=== PATIENT | female | born 1965 | race American Indian/Alaskan Native ===

== ENCOUNTER 2016-09-04 15:34 | Inpatient (IN) | payer BC, OTHER ==
[2016-09-04 15:59] VITALS: BMI 123.0
[2016-09-04] MEDS ORDERED: Sodium Chloride 0.9% 1,000 ML IV ONE ×2 (16:01→16:23)
[2016-09-04] MEDS ORDERED: Lactated Ringer's 1,000 ML IVB STA (16:50)
[2016-09-04] MEDS ORDERED: DOPamine 400mg/250ml D5W 250 ML IV STA (16:51)
[2016-09-04 17:14] LABS: VENOUS BLOOD GAS BASE EXCESS -17.5 mmol/L (0.0-2.0); VENOUS BLOOD GAS PCO2 76 mmHg (40-60); VENOUS BLOOD PH 6.93 (7.32-7.43)
[2016-09-04 17:20] LABS: BASO # 0.2 K/uL (0.0-0.2); EOS # 0.1 K/uL (0.0-0.7); EOS % 0.5 % (0.0-4.0); HEMATOCRIT 38.2 % (34.0-47.0); LYMPH # 5.2 K/uL (1.0-4.3); LYMPH % 29.1 % (20.0-40.0); MEAN CELL VOLUME 112.3 fL (81.0-99.0); MEAN CORPUSCULAR HEMOGLOBIN 33.1 pg (27.0-31.0); MEAN CORPUSCULAR HGB CONC 29.4 g/dL (33.0-37.0); MEAN PLATELET VOLUME 9.3 fL (7.2-11.7); MONO # 0.9 K/uL (0.0-0.8); MONO % 5.2 % (0.0-10.0); RED CELL DISTRIBUTION WIDTH 16.5 % (11.5-14.5)
[2016-09-04 17:31] LABS: CHLORIDE 104 mmol/L (98-107); POTASSIUM 3.5 mmol/L (3.6-5.2); SODIUM 142 mmol/L (132-148)
[2016-09-04 17:33] LABS: ALB/GLOB RATIO 0.9 (1.0-2.1); AST/SGOT 555 U/L (14-36); BILIRUBIN,TOTAL 0.9 mg/dL (0.2-1.3); CARBON DIOXIDE 16 mmol/L (22-30); GFR AFRICAN-AMERICAN > 60; TOTAL PROTEIN 4.6 g/dL (6.3-8.3)
[2016-09-04 17:34] LABS: ALKALINE PHOSPHATASE 47 U/L (38-126); ALT/SGPT 241 U/L (9-52); BLOOD UREA NITROGEN 13 mg/dL (7-17); CALCIUM 8.3 mg/dl (8.6-10.4); GLUCOSE,RANDOM 186 mg/dL (65-105); PHOSPHOROUS 5.8 mg/dL (2.5-4.5)
[2016-09-04] MEDS ORDERED: Albuterol-Ipratrop 3 mg / 0.5 (3 ml) UD INH STA (17:41)
[2016-09-04] MEDS ORDERED: Albumin Human 25% (12.5 gm/50 ml) IV STA (17:42)
[2016-09-04] MEDS ORDERED: Sodium Bicarbonate 8.4% 100 MEQ in Sodium Chloride 0.45% 900 ML IV SCH ×2 (17:45→23:07)
[2016-09-04] MEDS ORDERED: Albuterol-Ipratrop 3 mg / 0.5 (3 ml) UD ONE (17:49)
[2016-09-04] MEDS ORDERED: Sodium Bicarbonate (8.4%) 50 Meq Syringe IVP ONE ×2 (18:01→21:30)
--- NOTE | 2016-09-04 18:20 | C.PDOC ---
History Of Present Illness Pt was being transferred from [place] ED to the [facility] labor custodian for a procedure to treat massive pulmonary embolism. Pt was diverted to this ED because pt was found to be unstable. I saw this pt immediately upon arrival to this ED. Time Seen by Provider: 09/04/16 15:49 Chief Complaint (Nursing): Cardiac Arrest History Per: Patient, EMS, Family Circumstances: Brought To ED By EMS CPR Initiated Prior To MD Arrival?: No Treatment Initiated Prior To MD Arrival: Yes: IV Access - Initial Findings Mentation: Lethargic Rhythm: Tachycardia Past Medical History Reviewed: Historical Data, Nursing Documentation, Vital Signs Vital Signs: Last Vital Signs Temp Pulse 140 H 09/04/16 16:30 Resp 28 H 09/04/16 16:02 BP 110/58 L 09/04/16 16:02 Pulse Ox - Medical History PMH: Deep Vein Thrombosis, GERD, HTN Surgical History: Endoscopy (2007) - [facility] Procedures ESOPHAGOGASTRODUODENOSCOPY [EGD] W/CLOSED BIOPSY (10/16/13) Family History: States: Unknown Family Hx - Social History Hx Alcohol Use: Yes Hx Substance Use: No Review Of Systems Review Of Systems: ROS cannot be obtained secondary to pt's inabilty to answer questions. Physical Exam - Physical Exam Appears: Toxic, In Acute Distress Skin: Diaphoretic Head: Atraumatic Eye(s): bilateral: PERRL Neck: Normal ROM, Supple Chest: Symmetrical Cardiovascular: Rhythm Regular (tachycardic) Respiratory: Normal Breath Sounds (but tachypneic and very dyspneic) Gastrointestinal/Abdominal: Soft Extremity: Normal ROM Neurological/Psych: Oriented x3, Other (Lethargic, but able to move all extremities) ED Course And Treatment - Laboratory Results Result Diagrams: 09/04/16 17:16 09/04/16 17:16 ECG: Interpreted By Me, Viewed By Me ECG Rhythm: Sinus Tachycardia, Nonspecific Changes ECG Interpretation: Abnormal Rate From EC - Radiology CXR: Interpreted by Me, Viewed By Me CXR Interpretation: Yes: Other (ETT in place) Progress Note: Upon prompt evaluation of this patient, I recognized that she was suffering from a massive pulmonry embolism. I therefore ordered IV fluids and IV TPA right away. However, pt then coded while we were starting the medications. We then started CPR and ACLS protocol and I intubated the pt. I called Dr. Gentile (skidder loader), Dr. Jeffries (hospitalist), Dr. Tyler (IR), and Dr. Lafleur (ED director) to the bedside. Pt continued to become bradycardic and lose pulses on/off and the codes were managed by both me and Dr. Gentile. We decided to start pt on vasopressors (both Dopamine and Levophed) and continue IV fluid bloluses. We did not start a CVC because TPA was already infusing and there is a high risk of bleeding. Pt then started to improve and was admitted to ICU. Endotracheal Intubation - Endotracheal Intubation Intubated With ETT Size: 7 (7.5) Blade Type Used: Curved Indication: Respiratory Failure Intubated: Orally Pre-Intubation Airway Assessment: Ventilated And Oxygenated Post-Intubation Assessment: ETT Secured AT (cm): (23), Breath Sounds Equal Bilat , Placement Confirmed Via CXR, Color Change W/End Tidal CO2 Detector Progress - Interventions Interventions:: Observation, Intravenous fluid, Oxygen - Medications Administered Intravenous: Other (TPA, Epinephrine, Sodium Bicarb.) - Data Reviewed Data Reviewed: Lab, Diagnostic imaging, EKG, Old records - Patient Status Patient status: Partially improved, Critical - Critical Care Citical Care: Excluding Proc Time Critical Care Time: 75 minutes - Continuity of Care Discussed patient case with:: Family-HIPPA compliant, ED Nurse, On-call PMD-pt unassigned Discussed pt. case with mobile sales consultant/specialty: Pulmonary/Crit. Care - Patient Plan Patient Plan: Admission, ICU Disposition - Disposition Disposition: HOSPITALIZED Disposition Time: 18:00 Condition: CRITICAL - Clinical Impression Clinical Impression: Acute massive pulmonary embolism
[2016-09-04] MEDS ORDERED: DOPamine 400mg/250ml D5W 250 ML IV ONE (18:38)
[2016-09-04] MEDS ORDERED: Propofol 10 mg/ml Inj (20 ML) ONE (19:28)
[2016-09-04] MEDS ORDERED: Propofol 10 mg/ml Inj (20 ML) IV ONE (19:30)
--- NOTE | 2016-09-04 19:46 | CP.PCM.CON ---
History of Present Illness - History of Present Illness History of Present Illness: Chief complaint: Cardiac arrest History present illness: 50-year-old female history of hypertension GERD deep venous thrombosis and also now diagnosed with the acute saddle embolism, was brought into the [facility] today from [facility] for emergency thrombolysis by the catheter. But upon arrival to the hospital patient become very unstable, and the patient was transferred to the emergency room immediately, and the emergency room patient developed a cardiac arrest, and patient was resuscitated by emergency room doctor and myself, the whole procedure was monitored, and recorded. During the code, patient received intravenous thrombolysis, and 100 mg of alteplase was given over the course of 60 minutes. Patient had at least 4 episodes of cardiac arrest, each time patient was given cardiac massage, epinephrine, IV fluids and continued to get a resuscitation. After an hour later patient started having sustained cardiac rhythm, and patient was placed on dopamine 30 mics, norepinephrine 20 mics and also IV fluids. Patient was on ventilator, continued receiving oxygen. VBG was done showing evidence of pH of 6.9, started on bicarbonate drip albumen was also given to increase the blood pressure. Now patient is transferred to the intensive care unit, patient is awake and responding, she is fighting against the tube, currently given sedation Ativan 2 mg IV. Because of the TPA was given no arterial punctures were done now so we don't have a ABG at this time. The saturation is 100% on 100% FiO2 medical history DVT GERD hypertension Surgical history none Allergies none known drug allergy Review of system: Currently patient is on ventilator, patient is following commands, obesity, possible sleep apnea cannot be ruled out On examination: Vital signs unstable currently. Heart rate is 136 sinus rhythm saturation 100%. 19/m Chest good air entry bilaterally on ventilator. Heart sound abdomen soft nontender extremities edema bilaterally noted Patient's labs reviewed Chest x-ray showing evidence of severe oligemia on the right lung some improvement in the circulation on the left lung Assessment/condition: 50-year-old female admitted with acute cardiac arrest, complicated with secondary to saddle pulmonary embolism, status post a resuscitation, status post a TPA will start the patient on heparin, continue the hemodynamic support and follow-up by the ICU team Past Patient History - Past Medical History & Family History Past Medical History?: Yes - Past Social History Smoking Status: Current Some Days Smoker - CARDIAC Hx Hypertension: Yes - PULMONARY Hx Respiratory Disorders: No - NEUROLOGICAL Hx Dementia: No - HEENT Hx HEENT Problems: No - RENAL Hx Chronic Kidney Disease: No - ENDOCRINE/METABOLIC Hx Endocrine Disorders: No - HEMATOLOGICAL/ONCOLOGICAL Hx Blood Disorders: Yes Other/Comment: hx DVT in right leg 2011, pt was on coumadin but stopped due to bruising - INTEGUMENTARY Hx Dermatological Problems: No - MUSCULOSKELETAL/RHEUMATOLOGICAL Hx Musculoskeletal Disorders: No - GASTROINTESTINAL Hx Gastrointestinal Disorders: No - GENITOURINARY/GYNECOLOGICAL Hx Genitourinary Disorders: No - PSYCHIATRIC Hx Substance Use: No - SURGICAL HISTORY Hx Gastric Bypass Surgery: Yes (2005) - ANESTHESIA Hx Anesthesia: Yes Hx Anesthesia Reactions: No Hx Malignant Hyperthermia: No Meds Allergies/Adverse Reactions: Allergies Allergy/AdvReac Type Severity Reaction Status Date / Time No Known Allergies Allergy Verified 09/04/16 09:51 - Medications Medications: Current Medications Sodium Bicarbonate 100 meq/ (Sodium Chloride) 1,000 mls @ 100 mls/hr IV .Q10H KAREN Propofol (Diprivan) 100 mls @ 4.423 mls/hr IV .[id number] PRN; Protocol; 5 MCG/KG/ MIN PRN Reason: TITRATE PER MD ORDER Results - Vital Signs Recent Vital Signs: Last Vital Signs Temp Pulse 140 H 09/04/16 16:30 Resp 28 H 09/04/16 16:02 BP 110/58 L 09/04/16 16:02 Pulse Ox - Labs Result Diagrams: 09/04/16 17:16 09/04/16 17:16 Labs: Laboratory Results - last 24 hr 09/04/16 09/04/16 09/04/16 16:26 16:50 17:16 WBC 18.0 H D RBC 3.40 L Hgb 11.2 D Hct 38.2 MCV 112.3 H D MCH 33.1 H MCHC 29.4 L RDW 16.5 H Plt Count 115 L D MPV 9.3 Neut % (Auto) 64.2 Lymph % (Auto) 29.1 [place] % (Auto) 5.2 Eos % (Auto) 0.5 Baso % (Auto) 1.0 Neut # 11.6 H Lymph # 5.2 H [place] # 0.9 H Eos # 0.1 Baso # 0.2 pO2 42 VBG pH 6.93 L* VBG pCO2 76 H* VBG HCO3 9.8 VBG Total CO2 18.3 L VBG O2 Sat (Calc) 51.1 VBG Base Excess -17.5 L VBG Potassium 3.2 L Sodium 147.0 142 Chloride 111.0 H 104 Glucose 185 H Lactate 12.7 H* Crit Value Called To Dr javier Crit Value Called By [facility] Crit Value Read Back Y Blood Gas Notified Time 1714 Potassium 3.5 L Carbon Dioxide 16 L Anion Gap 26 H BUN 13 Creatinine 1.1 Est GFR ( Amer) > 60 Est GFR (Non-Af Amer) 52 POC Glucose (mg/dL) 166 H Random Glucose 186 H Calcium 8.3 L Phosphorus 5.8 H Magnesium 2.0 Total Bilirubin 0.9 AST 555 H D ALT 241 H D Alkaline Phosphatase 47 Total Creatine Kinase 123 CK-MB (Mass) 1.45 Troponin I, Quant 0.1090 NT-Pro-B Natriuret Pep 19600 H Total Protein 4.6 L Albumin 2.2 L D Globulin 2.4 Albumin/Globulin Ratio 0.9 L Venous Blood Potassium 3.2 L
[2016-09-04] MEDS ORDERED: Heparin25000 units/250ml 1/2NS 250 ML IV PRN (19:49)
[2016-09-04] MEDS ORDERED: DOPamine 400mg/250ml D5W 250 ML IV PRN (19:56)
[2016-09-04] MEDS ORDERED: Phenylephrine 30 MG in Sodium Chloride 0.9% 250 ML IV PRN (20:25)
--- NOTE | 2016-09-04 20:29 | CP.PCM.HP ---
<NayeliyonisAnnette rogellemuel - Last Filed: 09/04/16 21:18> History of Present Illness - History of Present Illness History of Present Illness: CC: syncope HPI: 50-year-old female with PMHx significant for hypertension, GERD, deep venous thrombosis and current diagnosis of acute saddle embolism, was transferred to [facility] today from [facility] for emergency catheter directed thrombolysis. En route to the hospital, patient became very unstable. Patient was transferred to the emergency room immediately, wherepon patient went into cardiac arrest in the ED. Patient was resuscitated by emergency room doctor and banquet set up person. During the code, patient received intravenous thrombolysis, and then 100 mg of alteplase administered over the course of 60 minutes. Patient had at least 4 episodes of cardiac arrest, each time patient was given cardiac massage, epinephrine, IV fluids which resuscitated the patient. Approx an hour later, patient was able to sustain a cardiac rhythm, and patient was placed on dopamine 30 mcgs, norepinephrine 20 mcgs and also IV fluids. Patient intubated and on a ventilator receiving continuous oxygen. VBG performed showing evidence of pH of 6.9. Pt started on bicarbonate drip. Albuminn was also given to increase the blood pressure. Patient transferred to the intensive care unit for critical care monitoring Past medical history: as noted above DVT GERD hypertension Surgical history: s/p prior endoscopy Fam Hx: Unknown- Patient intubated and sedated Social Hx: Unknown- Patient intubated and sedated Allergies : NKDA Present on Admission - Present on Admission Any Indicators Present on Admission: Yes History of DVT/PE: Yes Review of Systems - Review of Systems Systems not reviewed;Unavailable: Intubated Past Patient History - Past Medical History & Family History Past Medical History?: Yes - Past Social History Smoking Status: Current Some Days Smoker - CARDIAC Hx Hypertension: Yes - PULMONARY Hx Respiratory Disorders: No - NEUROLOGICAL Hx Dementia: No - HEENT Hx HEENT Problems: No - RENAL Hx Chronic Kidney Disease: No - ENDOCRINE/METABOLIC Hx Endocrine Disorders: No - HEMATOLOGICAL/ONCOLOGICAL Hx Blood Disorders: Yes Other/Comment: hx DVT in right leg 2011, pt was on coumadin but stopped due to bruising - INTEGUMENTARY Hx Dermatological Problems: No - MUSCULOSKELETAL/RHEUMATOLOGICAL Hx Musculoskeletal Disorders: No - GASTROINTESTINAL Hx Gastrointestinal Disorders: No - GENITOURINARY/GYNECOLOGICAL Hx Genitourinary Disorders: No - PSYCHIATRIC Hx Substance Use: No - SURGICAL HISTORY Hx Gastric Bypass Surgery: Yes (2005) - ANESTHESIA Hx Anesthesia: Yes Hx Anesthesia Reactions: No Hx Malignant Hyperthermia: No Meds Allergies/Adverse Reactions: Allergies Allergy/AdvReac Type Severity Reaction Status Date / Time No Known Allergies Allergy Verified 09/04/16 09:51 Physical Exam - Constitutional Appears: Non-toxic, In Acute Distress Additional comments: large body habitus - Head Exam Head Exam: ATRAUMATIC, NORMAL INSPECTION, NORMOCEPHALIC - Eye Exam Eye Exam: EOMI, Normal appearance, PERRL Pupil Exam: NORMAL ACCOMODATION - ENT Exam ENT Exam: Mucous Membranes Moist - Neck Exam Neck exam: Positive for: Full Rom - Respiratory Exam Respiratory Exam: NORMAL BREATHING PATTERN. absent: Wheezes - Cardiovascular Exam Cardiovascular Exam: +S1, +S2 Additional comments: difficult to auscultate likely due to adipose tissue - GI/Abdominal Exam GI & Abdominal Exam: Normal Bowel Sounds, Soft. absent: Tenderness - Extremities Exam Extremities exam: Positive for: full ROM - Neurological Exam Neurological exam: Altered - Psychiatric Exam Psychiatric exam: Flat Affect - Skin Skin Exam: Dry, Intact, Normal Color, Warm Results - Vital Signs Recent Vital Signs: Last Vital Signs Temp 97.2 F L 09/04/16 16:02 Pulse 148 H 09/04/16 18:30 Resp 30 H 09/04/16 18:30 BP 118/84 09/04/16 18:30 Pulse Ox 90 L 09/04/16 18:30 - Labs Result Diagrams: 09/04/16 20:28 09/04/16 20:28 Labs: Laboratory Results - last 24 hr 09/04/16 09/04/16 09/04/16 16:26 16:50 17:16 WBC 18.0 H D RBC 3.40 L Hgb 11.2 D Hct 38.2 MCV 112.3 H D MCH 33.1 H MCHC 29.4 L RDW 16.5 H Plt Count 115 L D MPV 9.3 Neut % (Auto) 64.2 Lymph % (Auto) 29.1 [place] % (Auto) 5.2 Eos % (Auto) 0.5 Baso % (Auto) 1.0 Neut # 11.6 H Lymph # 5.2 H [place] # 0.9 H Eos # 0.1 Baso # 0.2 pO2 42 VBG pH 6.93 L* VBG pCO2 76 H* VBG HCO3 9.8 VBG Total CO2 18.3 L VBG O2 Sat (Calc) 51.1 VBG Base Excess -17.5 L VBG Potassium 3.2 L Sodium 147.0 142 Chloride 111.0 H 104 Glucose 185 H Lactate 12.7 H* Crit Value Called To Dr javier Crit Value Called By [facility] Crit Value Read Back Y Blood Gas Notified Time 1714 Potassium 3.5 L Carbon Dioxide 16 L Anion Gap 26 H BUN 13 Creatinine 1.1 Est GFR ( Amer) > 60 Est GFR (Non-Af Amer) 52 POC Glucose (mg/dL) 166 H Random Glucose 186 H Calcium 8.3 L Phosphorus 5.8 H Magnesium 2.0 Total Bilirubin 0.9 AST 555 H D ALT 241 H D Alkaline Phosphatase 47 Total Creatine Kinase 123 CK-MB (Mass) 1.45 Troponin I, Quant 0.1090 NT-Pro-B Natriuret Pep 35784 H Total Protein 4.6 L Albumin 2.2 L D Globulin 2.4 Albumin/Globulin Ratio 0.9 L Venous Blood Potassium 3.2 L Assessment & Plan - Assessment and Plan (Free Text) Assessment: 50 year old with PMHx significant for HTN, GERD, prior DVT presents with bilateral PE requiring TPA therapy. Patient went into cardiac arrest multiple times and ACLS protocol immediately initiated each time. Patient resuscitated and transferred to ICU for critical care monitoring. Plan: Neuro: Ativan given due to patient's agitation Pt sedated on Propofol Cardio: Cardiac arrest multiple episodes ACLS protocol initiated immediately- Pt resuscitated Initially on dopamine, Norepi and IVF. Albumin given to increase BP ECHO- F/U to rule out right heart strain Morbidly Obese Pulm: CTA- bilateral acute saddle emboli noted. There may also be atelectasis and/or early acute infarct changes in the left upper and lower lobes as detailed above. See full report TPA Adjust vent settings as needed GI: NPO Nephro/: VBG pH 6.9 Bicarb drip started Monitor electrolytes and replete as needed Monitor Ins/Outs IVF ID: No apparent signs of current infectious disease Inc in WBC likely secondary to stress related response Will monitor Endo: F/U Hgb A1C No known hx of Diabetes Heme: PE TPA-> Heparin Hx of DVTs for which patient has been on coumadin before F/U co-ags Prophylaxis: TPA-> Heparin Protonix Confirm Home meds <Rangel Jeffries H - Last Filed: 09/05/16 07:53> Results - Vital Signs Recent Vital Signs: Last Vital Signs Temp 98 F 09/04/16 19:30 Pulse 56 L 09/04/16 23:29 Resp 19 09/04/16 23:29 BP 71/49 L 09/04/16 23:29 Pulse Ox 44 L 09/04/16 23:00 - Labs Result Diagrams: 09/04/16 20:28 09/04/16 20:28 Labs: Laboratory Results - last 24 hr 09/04/16 09/04/16 09/04/16 16:26 16:50 17:16 WBC 18.0 H D RBC 3.40 L Hgb 11.2 D Hct 38.2 MCV 112.3 H D MCH 33.1 H MCHC 29.4 L RDW 16.5 H Plt Count 115 L D MPV 9.3 Neut % (Auto) 64.2 Lymph % (Auto) 29.1 [place] % (Auto) 5.2 Eos % (Auto) 0.5 Baso % (Auto) 1.0 Neut # 11.6 H Lymph # 5.2 H [place] # 0.9 H Eos # 0.1 Baso # 0.2 Neutrophils % (Manual) Band Neutrophils % Lymphocytes % (Manual) Monocytes % (Manual) Hypersegmented Polys Smudge Cells Platelet Estimate Large Platelets Polychromasia Poikilocytosis (manual Anisocytosis (manual) Microcytosis (manual) Puncture Site pCO2 pO2 42 HCO3 ABG pH ABG Total CO2 ABG O2 Saturation ABG Base Excess ABG Hemoglobin ABG Carboxyhemoglobin POC ABG HHb (Measured) ABG Methemoglobin Micky Test VBG pH 6.93 L* VBG pCO2 76 H* VBG HCO3 9.8 VBG Total CO2 18.3 L VBG O2 Sat (Calc) 51.1 VBG Base Excess -17.5 L VBG Potassium 3.2 L A-a O2 Difference Respiratory Index Hgb O2 Saturation Sodium 147.0 142 Chloride 111.0 H 104 Glucose 185 H Lactate 12.7 H* Mechanical Rate FiO2 Tidal Volume PEEP Crit Value Called To Dr javier Crit Value Called By [facility] Crit Value Read Back Y Blood Gas Notified Time 1714 Potassium 3.5 L Carbon Dioxide 16 L Anion Gap 26 H BUN 13 Creatinine 1.1 Est GFR ( Amer) > 60 Est GFR (Non-Af Amer) 52 POC Glucose (mg/dL) 166 H Random Glucose 186 H Lactic Acid Calcium 8.3 L Phosphorus 5.8 H Magnesium 2.0 Total Bilirubin 0.9 AST 555 H D ALT 241 H D Alkaline Phosphatase 47 Total Creatine Kinase 123 CK-MB (Mass) 1.45 Troponin I, Quant 0.1090 NT-Pro-B Natriuret Pep 31982 H Total Protein 4.6 L Albumin 2.2 L D Globulin 2.4 Albumin/Globulin Ratio 0.9 L Venous Blood Potassium 3.2 L 09/04/16 09/04/16 20:28 22:50 WBC 23.3 H RBC 3.31 L Hgb 11.1 Hct 37.3 MCV 112.6 H MCH 33.4 H MCHC 29.7 L RDW 16.7 H Plt Count 209 MPV 9.7 Neut % (Auto) 82.4 H Lymph % (Auto) 12.1 L [place] % (Auto) 5.2 Eos % (Auto) 0.1 Baso % (Auto) 0.2 Neut # 19.2 H Lymph # 2.8 [place] # 1.2 H Eos # 0.0 Baso # 0.0 Neutrophils % (Manual) 78 H Band Neutrophils % 4 H Lymphocytes % (Manual) 13 L Monocytes % (Manual) 5 Hypersegmented Polys Present Smudge Cells Present Platelet Estimate Normal Large Platelets Present Polychromasia Slight Poikilocytosis (manual Slight Anisocytosis (manual) Slight Microcytosis (manual) Slight Puncture Site Rra pCO2 47 H pO2 223 H HCO3 9.7 L* ABG pH 6.98 L* ABG Total CO2 12.5 L ABG O2 Saturation 100.9 H ABG Base Excess -19.6 L ABG Hemoglobin 9.5 L ABG Carboxyhemoglobin 1.9 H POC ABG HHb (Measured) -0.9 L ABG Methemoglobin 1.3 Micky Test P VBG pH VBG pCO2 VBG HCO3 VBG Total CO2 VBG O2 Sat (Calc) VBG Base Excess VBG Potassium A-a O2 Difference 431.0 Respiratory Index 1.9 Hgb O2 Saturation 97.8 Sodium 144 Chloride 103 Glucose Lactate Mechanical Rate 22 FiO2 100.0 Tidal Volume 550 PEEP 15 Crit Value Called To Dr ramirez Crit Value Called By [facility] Crit Value Read Back Y Blood Gas Notified Time 2250 Potassium 3.8 Carbon Dioxide 15 L Anion Gap 30 H BUN 14 Creatinine 1.8 H Est GFR ( Amer) 36 Est GFR (Non-Af Amer) 30 POC Glucose (mg/dL) Random Glucose 160 H Lactic Acid 11.5 H* Calcium 8.5 L Phosphorus Magnesium Total Bilirubin 1.4 H AST 1358 H ALT 389 H D Alkaline Phosphatase 65 Total Creatine Kinase CK-MB (Mass) Troponin I, Quant NT-Pro-B Natriuret Pep Total Protein 5.3 L Albumin 2.8 L D Globulin 2.5 Albumin/Globulin Ratio 1.1 Venous Blood Potassium Attending/Attestation - Attestation I have personally seen and examined this patient.: Yes I have fully participated in the care of the patient.: Yes I have reviewed all pertinent clinical information: Yes Notes (Text): 09/05/16 07:50 Medical Attending: Patient was seen in the ER. However at that time was already intubated and in an active code. As mentioned above in the resident note the patient was found to have a large PE and right heart failure at [facility]. Because of the severity of the situation patient was moved to [facility] for possible direct cathter thrombolysis of the clot area however she had worsening respiratory status and had to be intubated and ultimately she later during the night in the ICU Rangel Jeffries
[2016-09-04] MEDS ORDERED: Sodium Chloride 0.9% 1,000 ML IV SCH (20:30)
[2016-09-04] MEDS ORDERED: Sodium Bicarbonate (8.4%) 50 Meq Syringe ONE ×3 (20:42→23:23)
[2016-09-04 20:43] LABS: POTASSIUM 3.8 mmol/L (3.6-5.2)
[2016-09-04 20:45] LABS: BILIRUBIN,TOTAL 1.4 mg/dL (0.2-1.3)
[2016-09-04 20:46] LABS: ALB/GLOB RATIO 1.1 (1.0-2.1); CALCIUM 8.5 mg/dl (8.6-10.4); TOTAL PROTEIN 5.3 g/dL (6.3-8.3)
[2016-09-04 20:48] LABS: BASO % 0.2 % (0.0-2.0); EOS % 0.1 % (0.0-4.0); HEMATOCRIT 37.3 % (34.0-47.0); LYMPH # 2.8 K/uL (1.0-4.3); LYMPH % 12.1 % (20.0-40.0); MEAN CELL VOLUME 112.6 fL (81.0-99.0); MEAN CORPUSCULAR HEMOGLOBIN 33.4 pg (27.0-31.0); MEAN CORPUSCULAR HGB CONC 29.7 g/dL (33.0-37.0); MEAN PLATELET VOLUME 9.7 fL (7.2-11.7); MONO # 1.2 K/uL (0.0-0.8); MONO % 5.2 % (0.0-10.0); NRBC % 1.3 % (0.0-2.0); PLATELET COUNT 209 K/uL (130-400); RED CELL DISTRIBUTION WIDTH 16.7 % (11.5-14.5); WHITE BLOOD COUNT 23.3 K/uL (4.8-10.8)
[2016-09-04] MEDS: Albuterol-Ipratrop 3 mg / 0.5 (3 ml) UD INH SCH (21:10)
[2016-09-04] MEDS ORDERED: Sodium Bicarbonate 8.4% 150 MEQ in Sodium Chloride 0.9% 850 ML IV ONE (21:45)
[2016-09-04] MEDS ORDERED: Calcium Chloride 1000 mg/10 ml Syringe IV ONE (22:39)
[2016-09-04 22:57] LABS: ABG ALLEN TEST P; ABG MECHANICAL RATE 22; ARTERIAL BLOOD HGB O2 SAT 97.8 % (95.0-98.0); ATERIAL BLOOD GAS PEEP 15; CARBOXYHEMOGLOBIN 1.9 % (0.5-1.5); DRAW SITE RRA; HHB -0.9 % (0.0-5.0); METHEMOGLOBIN 1.3 % (0.0-3.0)
[2016-09-04 23:46] LABS: LARGE PLATELETS PRESENT; NEUTROPHIL 78 % (50-75); SMUDGE CELLS PRESENT; TOTAL CELLS COUNTED 100
--- NOTE | 2016-09-04 23:50 | CP.PCM.PRO ---
Pronouncement of Note - Clinical Findings Physical Exam: No Response Verbal/Painful Stimuli, Absent Peripheral Pulses{ Carotid & Femoral}, Absent Heart & Breath Sounds, No Pupillary Light Reflex, No Corneal Reflex, Pupils Fixed & Dilated, Absence of Vital Signs - Pronouncement Time Time of Pronouncement of : 23:37 - Notifications Pronouncement Notifications: Family Notified, Atending Notified Power Nut Runner Operator Notified: Yes - Autopsy Autopsy Requested: No - [place] [id number]
[2016-09-05] MEDS: Albuterol-Ipratrop 3 mg / 0.5 (3 ml) UD INH SCH (01:14)
--- NOTE | 2016-09-05 02:07 | CP.PCM.DIS ---
<Barbie Pride - Last Filed: 09/05/16 02:02> Provider - Provider Date of Admission: 09/04/16 16:22 Attending physician: Rangel Jeffries DO Primary care physician: none Consults: Critical Care. Time Spent in preparation of Discharge (in minutes): 45 Diagnosis - Discharge Diagnosis (1) Acute massive pulmonary embolism Status: Acute (2) Cardiac arrest Status: Acute Hospital Course - Lab Results Lab Results: Most Recent Lab Values WBC 23.3 K/uL (4.8-10.8) H 09/04/16 20:28 RBC 3.31 Mil/uL (3.80-5.20) L 09/04/16 20:28 Hgb 11.1 g/dL (11.0-16.0) 09/04/16 20:28 Hct 37.3 % (34.0-47.0) 09/04/16 20:28 MCV 112.6 fL (81.0-99.0) H 09/04/16 20:28 MCH 33.4 pg (27.0-31.0) H 09/04/16 20:28 MCHC 29.7 g/dL (33.0-37.0) L 09/04/16 20:28 RDW 16.7 % (11.5-14.5) H 09/04/16 20:28 Plt Count 209 K/uL (130-400) 09/04/16 20:28 MPV 9.7 fL (7.2-11.7) 09/04/16 20:28 Neut % (Auto) 82.4 % (50.0-75.0) H 09/04/16 20:28 Lymph % (Auto) 12.1 % (20.0-40.0) L 09/04/16 20:28 [place] % (Auto) 5.2 % (0.0-10.0) 09/04/16 20:28 Eos % (Auto) 0.1 % (0.0-4.0) 09/04/16 20:28 Baso % (Auto) 0.2 % (0.0-2.0) 09/04/16 20:28 Neut # 19.2 K/uL (1.8-7.0) H 09/04/16 20:28 Lymph # 2.8 K/uL (1.0-4.3) 09/04/16 20:28 [place] # 1.2 K/uL (0.0-0.8) H 09/04/16 20:28 Eos # 0.0 K/uL (0.0-0.7) 09/04/16 20:28 Baso # 0.0 K/uL (0.0-0.2) 09/04/16 20:28 Neutrophils % (Manual) 78 % (50-75) H 09/04/16 20:28 Band Neutrophils % 4 % (0-2) H 09/04/16 20:28 Lymphocytes % (Manual) 13 % (20-40) L 09/04/16 20:28 Monocytes % (Manual) 5 % (0-10) 09/04/16 20:28 Hypersegmented Polys Present 09/04/16 20:28 Smudge Cells Present 09/04/16 20:28 Platelet Estimate Normal (NORMAL) 09/04/16 20:28 Large Platelets Present 09/04/16 20:28 Polychromasia Slight 09/04/16 20:28 Poikilocytosis (manual Slight 09/04/16 20:28 Anisocytosis (manual) Slight 09/04/16 20:28 Microcytosis (manual) Slight 09/04/16 20:28 Puncture Site Rra 09/04/16 22:50 pCO2 47 mm/Hg (35-45) H 09/04/16 22:50 pO2 223 mm/Hg (80-100) H 09/04/16 22:50 HCO3 9.7 mmol/L (21-28) L* 09/04/16 22:50 ABG pH 6.98 (7.35-7.45) L* 09/04/16 22:50 ABG Total CO2 12.5 mmol/L (22-28) L 09/04/16 22:50 ABG O2 Saturation 100.9 % (95-98) H 09/04/16 22:50 ABG Base Excess -19.6 mmol/L (-2.0-3.0) L 09/04/16 22:50 ABG Hemoglobin 9.5 g/dL (11.7-17.4) L 09/04/16 22:50 ABG Carboxyhemoglobin 1.9 % (0.5-1.5) H 09/04/16 22:50 POC ABG HHb (Measured) -0.9 % (0.0-5.0) L 09/04/16 22:50 ABG Methemoglobin 1.3 % (0.0-3.0) 09/04/16 22:50 Micky Test P 09/04/16 22:50 VBG pH 6.93 (7.32-7.43) L* 09/04/16 16:50 VBG pCO2 76 mmHg (40-60) H* 09/04/16 16:50 VBG HCO3 9.8 mmol/L 09/04/16 16:50 VBG Total CO2 18.3 mmol/L (22-28) L 09/04/16 16:50 VBG O2 Sat (Calc) 51.1 % (40-65) 09/04/16 16:50 VBG Base Excess -17.5 mmol/L (0.0-2.0) L 09/04/16 16:50 VBG Potassium 3.2 mmol/L (3.6-5.2) L 09/04/16 16:50 A-a O2 Difference 431.0 mm/Hg 09/04/16 22:50 Respiratory Index 1.9 09/04/16 22:50 Hgb O2 Saturation 97.8 % (95.0-98.0) 09/04/16 22:50 Sodium 147.0 mmol/l (132-148) 09/04/16 16:50 Chloride 111.0 mmol/L (98-107) H 09/04/16 16:50 Glucose 185 mg/dl (65-105) H 09/04/16 16:50 Lactate 12.7 mmol/L (0.7-2.1) H* 09/04/16 16:50 Mechanical Rate 22 09/04/16 22:50 FiO2 100.0 % 09/04/16 22:50 Tidal Volume 550 09/04/16 22:50 PEEP 15 09/04/16 22:50 Crit Value Called To Dr ramirez 09/04/16 22:50 Crit Value Called By Pio guthrie 09/04/16 22:50 Crit Value Read Back Y 09/04/16 22:50 Blood Gas Notified Time 2250 09/04/16 22:50 Sodium 144 mmol/L (132-148) 09/04/16 20:28 Potassium 3.8 mmol/L (3.6-5.2) 09/04/16 20:28 Chloride 103 mmol/L (98-107) 09/04/16 20:28 Carbon Dioxide 15 mmol/L (22-30) L 09/04/16 20:28 Anion Gap 30 (10-20) H 09/04/16 20:28 BUN 14 mg/dL (7-17) 09/04/16 20:28 Creatinine 1.8 MG/DL (0.7-1.2) H 09/04/16 20:28 Est GFR ( Amer) 36 09/04/16 20:28 Est GFR (Non-Af Amer) 30 09/04/16 20:28 POC Glucose (mg/dL) 166 mg/dL (65-110) H 09/04/16 16:26 Random Glucose 160 mg/dL (65-105) H 09/04/16 20:28 Lactic Acid 11.5 mmol/L (0.7-2.1) H* 09/04/16 20:28 Calcium 8.5 mg/dl (8.6-10.4) L 09/04/16 20:28 Phosphorus 5.8 mg/dL (2.5-4.5) H 09/04/16 17:16 Magnesium 2.0 mg/dL (1.6-2.3) 09/04/16 17:16 Total Bilirubin 1.4 mg/dL (0.2-1.3) H 09/04/16 20:28 AST 1358 U/L (14-36) H 09/04/16 20:28 ALT 389 U/L (9-52) H D 09/04/16 20:28 Alkaline Phosphatase 65 U/L (38-126) 09/04/16 20:28 Total Creatine Kinase 123 U/L (30-135) 09/04/16 17:16 CK-MB (Mass) 1.45 ng/mL (0.0-3.38) 09/04/16 17:16 Troponin I, Quant 0.1090 ng/mL (0.00-0.120) 09/04/16 17:16 NT-Pro-B Natriuret Pep 11113 pg/mL (0-900) H 09/04/16 17:16 Total Protein 5.3 g/dL (6.3-8.3) L 09/04/16 20:28 Albumin 2.8 g/dL (3.5-5.0) L D 09/04/16 20:28 Globulin 2.5 gm/dL (2.2-3.9) 09/04/16 20:28 Albumin/Globulin Ratio 1.1 (1.0-2.1) 09/04/16 20:28 Venous Blood Potassium 3.2 mmol/L (3.6-5.2) L 09/04/16 16:50 - Hospital Course Hospital Course: 50-year-old female with PMHx significant for hypertension, GERD, deep venous thrombosis and current diagnosis of acute saddle embolism, was transferred to [facility] for emergency catheter directed thrombolysis. En route to the hospital, patient became very unstable. Patient was transferred to the emergency room immediately, whereupon patient went into cardiac arrest in the ED. Patient was resuscitated by emergency room doctor and door captain. During the code, patient received intravenous thrombolysis, and then 100 mg of alteplase administered over the course of 60 minutes. While in the ED, patient had at least 4 episodes of cardiac arrest, each time patient was given cardiac massage, epinephrine, IV fluids which resuscitated the patient. Approx an hour later, patient was able to sustain a cardiac rhythm, and patient was placed on dopamine 30 mcgs, norepinephrine 20 mcgs and also IV fluids. Patient intubated and placed on a ventilator. VBG performed showing evidence of pH of 6.9. Pt started on bicarbonate drip. Albuminn was also given to increase the blood pressure. Patient transferred to the intensive care unit for critical care monitoring Patient was managed for severe hypoxia from a saddle PE with cor pulmonale with concomitant cardiogenic shock and severe lactic acidosis. Patient went into PEA arrest 9 times over the course of the day. After multiple conversation with the family it was decided to stop resuscitation efforts. The patient was in PEA arrest with no perfusing rhythm. CPR was stopped and she was declared at [id number]. This is only a summary of the hospital course. Please see chart for full details. Discharge Exam - Head Exam Additional comments: Patient Discharge Plan - Follow Up Plan Condition: Disposition: WITH WITHOUT AUTOPSY <Jeffries,Peter H - Last Filed: 09/05/16 07:55> Provider - Provider Date of Admission: 09/04/16 16:22 Attending physician: Rangel Jeffries DO Hospital Course - Lab Results Lab Results: Most Recent Lab Values WBC 23.3 K/uL (4.8-10.8) H 09/04/16 20:28 RBC 3.31 Mil/uL (3.80-5.20) L 09/04/16 20:28 Hgb 11.1 g/dL (11.0-16.0) 09/04/16 20:28 Hct 37.3 % (34.0-47.0) 09/04/16 20: MCV 112.6 fL (81.0-99.0) H 09/04/16 20:28 MCH 33.4 pg (27.0-31.0) H 09/04/16 20:28 MCHC 29.7 g/dL (33.0-37.0) L 09/04/16 20: RDW 16.7 % (11.5-14.5) H 09/04/16 20:28 Plt Count 209 K/uL (130-400) 09/04/16 20:28 MPV 9.7 fL (7.2-11.7) 09/04/16 20:28 Neut % (Auto) 82.4 % (50.0-75.0) H 09/04/16 20:28 Lymph % (Auto) 12.1 % (20.0-40.0) L 09/04/16 20:28 [place] % (Auto) 5.2 % (0.0-10.0) 09/04/16 20: Eos % (Auto) 0.1 % (0.0-4.0) 09/04/16 20: Baso % (Auto) 0.2 % (0.0-2.0) 09/04/16 20:28 Neut # 19.2 K/uL (1.8-7.0) H 09/04/16 20:28 Lymph # 2.8 K/uL (1.0-4.3) 09/04/16 20:28 [place] # 1.2 K/uL (0.0-0.8) H 09/04/16 20:28 Eos # 0.0 K/uL (0.0-0.7) 09/04/16 20:28 Baso # 0.0 K/uL (0.0-0.2) 09/04/16 20:28 Neutrophils % (Manual) 78 % (50-75) H 09/04/16 20:28 Band Neutrophils % 4 % (0-2) H 09/04/16 20:28 Lymphocytes % (Manual) 13 % (20-40) L 09/04/16 20:28 Monocytes % (Manual) 5 % (0-10) 09/04/16 20:28 Hypersegmented Polys Present 09/04/16 20:28 Smudge Cells Present 09/04/16 20:28 Platelet Estimate Normal (NORMAL) 09/04/16 20:28 Large Platelets Present 09/04/16 20:28 Polychromasia Slight 09/04/16 20:28 Poikilocytosis (manual Slight 09/04/16 20:28 Anisocytosis (manual) Slight 09/04/16 20:28 Microcytosis (manual) Slight 09/04/16 20:28 Puncture Site Rra 09/04/16 22:50 pCO2 47 mm/Hg (35-45) H 09/04/16 22:50 pO2 223 mm/Hg (80-100) H 09/04/16 22:50 HCO3 9.7 mmol/L (21-28) L* 09/04/16 22:50 ABG pH 6.98 (7.35-7.45) L* 09/04/16 22:50 ABG Total CO2 12.5 mmol/L (22-28) L 09/04/16 22:50 ABG O2 Saturation 100.9 % (95-98) H 09/04/16 22:50 ABG Base Excess -19.6 mmol/L (-2.0-3.0) L 09/04/16 22:50 ABG Hemoglobin 9.5 g/dL (11.7-17.4) L 09/04/16 22:50 ABG Carboxyhemoglobin 1.9 % (0.5-1.5) H 09/04/16 22:50 POC ABG HHb (Measured) -0.9 % (0.0-5.0) L 09/04/16 22:50 ABG Methemoglobin 1.3 % (0.0-3.0) 09/04/16 22:50 Micky Test P 09/04/16 22:50 VBG pH 6.93 (7.32-7.43) L* 09/04/16 16:50 VBG pCO2 76 mmHg (40-60) H* 09/04/16 16:50 VBG HCO3 9.8 mmol/L 09/04/16 16:50 VBG Total CO2 18.3 mmol/L (22-28) L 09/04/16 16:50 VBG O2 Sat (Calc) 51.1 % (40-65) 09/04/16 16:50 VBG Base Excess -17.5 mmol/L (0.0-2.0) L 09/04/16 16:50 VBG Potassium 3.2 mmol/L (3.6-5.2) L 09/04/16 16:50 A-a O2 Difference 431.0 mm/Hg 09/04/16 22:50 Respiratory Index 1.9 09/04/16 22:50 Hgb O2 Saturation 97.8 % (95.0-98.0) 09/04/16 22:50 Sodium 147.0 mmol/l (132-148) 09/04/16 16:50 Chloride 111.0 mmol/L (98-107) H 09/04/16 16:50 Glucose 185 mg/dl (65-105) H 09/04/16 16:50 Lactate 12.7 mmol/L (0.7-2.1) H* 09/04/16 16:50 Mechanical Rate 22 09/04/16 22:50 FiO2 100.0 % 09/04/16 22:50 Tidal Volume 550 09/04/16 22:50 PEEP 15 09/04/16 22:50 Crit Value Called To Dr ramirez 09/04/16 22:50 Crit Value Called By Pio guthrie 09/04/16 22:50 Crit Value Read Back Y 09/04/16 22:50 Blood Gas Notified Time 2250 09/04/16 22:50 Sodium 144 mmol/L (132-148) 09/04/16 20:28 Potassium 3.8 mmol/L (3.6-5.2) 09/04/16 20:28 Chloride 103 mmol/L (98-107) 09/04/16 20:28 Carbon Dioxide 15 mmol/L (22-30) L 09/04/16 20:28 Anion Gap 30 (10-20) H 09/04/16 20:28 BUN 14 mg/dL (7-17) 09/04/16 20:28 Creatinine 1.8 MG/DL (0.7-1.2) H 09/04/16 20:28 Est GFR ( Amer) 36 09/04/16 20:28 Est GFR (Non-Af Amer) 30 09/04/16 20:28 POC Glucose (mg/dL) 166 mg/dL (65-110) H 09/04/16 16:26 Random Glucose 160 mg/dL (65-105) H 09/04/16 20:28 Lactic Acid 11.5 mmol/L (0.7-2.1) H* 09/04/16 20:28 Calcium 8.5 mg/dl (8.6-10.4) L 09/04/16 20:28 Phosphorus 5.8 mg/dL (2.5-4.5) H 09/04/16 17:16 Magnesium 2.0 mg/dL (1.6-2.3) 09/04/16 17:16 Total Bilirubin 1.4 mg/dL (0.2-1.3) H 09/04/16 20:28 AST 1358 U/L (14-36) H 09/04/16 20:28 ALT 389 U/L (9-52) H D 09/04/16 20:28 Alkaline Phosphatase 65 U/L (38-126) 09/04/16 20:28 Total Creatine Kinase 123 U/L (30-135) 09/04/16 17:16 CK-MB (Mass) 1.45 ng/mL (0.0-3.38) 09/04/16 17:16 Troponin I, Quant 0.1090 ng/mL (0.00-0.120) 09/04/16 17:16 NT-Pro-B Natriuret Pep 31064 pg/mL (0-900) H 09/04/16 17:16 Total Protein 5.3 g/dL (6.3-8.3) L 09/04/16 20:28 Albumin 2.8 g/dL (3.5-5.0) L D 09/04/16 20:28 Globulin 2.5 gm/dL (2.2-3.9) 09/04/16 20:28 Albumin/Globulin Ratio 1.1 (1.0-2.1) 09/04/16 20:28 Venous Blood Potassium 3.2 mmol/L (3.6-5.2) L 09/04/16 16:50 Attending/Attestation - Attestation I have personally seen and examined this patient.: Yes I have fully participated in the care of the patient.: Yes I have reviewed all pertinent clinical information, including history, physical exam and plan: Yes Notes (Text): 09/05/16 07:54 Medical Attending: I did see this patient during the transfer from [place] to [facility] in the ER. However as previously mentioned - at that time was already intubated and in an active code. As mentioned above in the resident note the patient was found to have a large PE and right heart failure at [facility]. Because of the severity of the situation patient was moved to [facility] for possible direct cathter thrombolysis of the clot area however she had worsening respiratory status and had to be intubated and ultimately she later during the night in the ICU Rangel Jeffries
[2016-09-05 03:20] VITALS: BP 71/49; PULSE 56; RESP 19; O2SAT 44
[2016-09-05 03:22] VITALS: TEMP 98
--- NOTE | 2016-09-05 09:25 | RAD ---
HISTORY: s/p intubated COMPARISON: No prior. FINDINGS: LUNGS: There are prominent perihilar opacities/lung markings seen. The ET tube is seen at appropriate position. PLEURA: No significant pleural effusion identified, no pneumothorax apparent. CARDIOVASCULAR: The cardiac silhouette is enlarged this portable exam. The aortic knob and descending thoracic aorta are also prominent in size. OSSEOUS STRUCTURES: No significant abnormalities. VISUALIZED UPPER ABDOMEN: Normal. OTHER FINDINGS: None. IMPRESSION: The baseline portable chest x-ray. Perihilar opacities may represent pulmonary vascular congestion. Large cardiac silhouette in this portable exam. Appropriate position of the ETT.
== END 2016-09-04 23:37 | DRG 208 ==
LOC: C.ER 15:34 → C.9I 16:22
PROVIDERS: ADMIT Hospitalist; ATTEND Hospitalist
PROC: 3E03317 Introduction of Other Thrombolytic into Peripheral Vein, Percutaneous Approach (ICD-10-PCS; principal; 2016-09-04)
PROC: 5A1935Z Respiratory Ventilation, Less than 24 Consecutive Hours (ICD-10-PCS; 2016-09-04)
PROC: 5A12012 Performance of Cardiac Output, Single, Manual (ICD-10-PCS; 2016-09-04)
PROC: 0BH17EZ Insertion of Endotracheal Airway into Trachea, Via Natural or Artificial Opening (ICD-10-PCS; 2016-09-04)
PROC: 3E033XZ Introduction of Vasopressor into Peripheral Vein, Percutaneous Approach (ICD-10-PCS; 2016-09-04)
DX: I26.92 Saddle embolus of pulmonary artery without acute cor pulmonale (principal); J96.01 Acute respiratory failure with hypoxia; I46.8 Cardiac arrest due to other underlying condition; Z68.43 Body mass index [BMI] 50.0-59.9, adult; K21.9 Gastro-esophageal reflux disease without esophagitis; Z86.718 Personal history of other venous thrombosis and embolism; G47.30 Sleep apnea, unspecified; F17.210 Nicotine dependence, cigarettes, uncomplicated; E66.01 Morbid (severe) obesity due to excess calories; I11.0 Hypertensive heart disease with heart failure; I50.9 Heart failure, unspecified